=== PATIENT | female | born 1945 | race Two or more races ===

== ENCOUNTER 2018-01-07 13:44 | Outpatient (CLI) | payer OTHER ==
[~2018-01-07 13:44] MED LIST: NABUMETONE500 MG PO; PERCOCET 2.5/321 TAB PO
== END 2018-01-07 14:02 | disposition home or self-care (01) ==
LOC: MAMO-SONO 13:44
DX: Z12.31 Encounter for screening mammogram for malignant neoplasm of breast (principal); Z87.898 Personal history of other specified conditions; N60.12 Diffuse cystic mastopathy of left breast; N60.11 Diffuse cystic mastopathy of right breast; R10.2 Pelvic and perineal pain; R10.84 Generalized abdominal pain

== ENCOUNTER 2018-09-15 07:55 | Outpatient (CLI) | payer OTHER | END 2018-09-15 17:00 | disposition home or self-care (01) | LOC: SONOGRAMA 07:55 | DX: M75.02 Adhesive capsulitis of left shoulder (principal) ==

== ENCOUNTER 2019-03-15 12:54 | Outpatient (CLI) | payer OTHER | END 2019-03-15 14:29 | disposition home or self-care (01) | LOC: MAMO-SONO 12:54 | DX: N60.12 Diffuse cystic mastopathy of left breast (principal); N60.11 Diffuse cystic mastopathy of right breast; N83.291 Other ovarian cyst, right side; D25.1 Intramural leiomyoma of uterus; Z12.31 Encounter for screening mammogram for malignant neoplasm of breast; R10.2 Pelvic and perineal pain; R10.84 Generalized abdominal pain; M89.8X8 Other specified disorders of bone, other site; M85.88 Other specified disorders of bone density and structure, other site; M81.0 Age-related osteoporosis without current pathological fracture ==

== ENCOUNTER 2020-06-02 09:33 | Outpatient (CLI) | payer OTHER | END 2020-06-02 12:00 | disposition home or self-care (01) | LOC: PPH VACUNA 09:33 | PROVIDERS: ATTEND Emergency Medicine Pediatric Emergency Medicine | DX: Z23 Encounter for immunization (principal) ==

== ENCOUNTER 2020-07-17 12:41 | Outpatient (CLI) | payer OTHER | END 2020-07-17 14:59 | disposition home or self-care (01) | LOC: MAMO-SONO 12:41 | PROVIDERS: ATTEND Obstetrics & Gynecology Gynecology | DX: D25.2 Subserosal leiomyoma of uterus (principal); Z12.31 Encounter for screening mammogram for malignant neoplasm of breast; N64.59 Other signs and symptoms in breast ==

== ENCOUNTER → 2020-10-05 | Outpatient (CLI) | payer OTHER | END | disposition home or self-care (01) | LOC: RAD 10:26 | PROVIDERS: ATTEND Ophthalmology | DX: H25.011 Cortical age-related cataract, right eye (principal); Z98.41 Cataract extraction status, right eye ==

== ENCOUNTER 2021-02-18 08:00 | Outpatient (CLI) | payer OTHER | END 2021-02-18 08:05 | disposition home or self-care (01) | LOC: PPH VACUNA 08:00 | PROVIDERS: ATTEND Emergency Medicine Pediatric Emergency Medicine | DX: Z23 Encounter for immunization (principal) ==

== ENCOUNTER 2021-08-26 08:00 | Outpatient (CLI) | payer OTHER | END 2021-08-26 08:30 | disposition home or self-care (01) | LOC: PPH VACUNA 08:00 | PROVIDERS: ATTEND Emergency Medicine Pediatric Emergency Medicine | DX: Z23 Encounter for immunization (principal) ==

== ENCOUNTER → 2021-11-08 | Outpatient (CLI) | payer OTHER | END | disposition home or self-care (01) | LOC: MAMO-SONO 10:47 | PROVIDERS: ATTEND Obstetrics & Gynecology Gynecology | DX: N60.19 Diffuse cystic mastopathy of unspecified breast (principal); N60.12 Diffuse cystic mastopathy of left breast; N60.11 Diffuse cystic mastopathy of right breast; N83.291 Other ovarian cyst, right side; R10.2 Pelvic and perineal pain; R10.9 Unspecified abdominal pain ==

== ENCOUNTER 2021-11-12 07:36 | Outpatient (CLI) | payer OTHER | END 2021-11-12 08:10 | disposition home or self-care (01) | LOC: SONOGRAMA 07:36 | PROVIDERS: ATTEND Obstetrics & Gynecology Gynecology | DX: R10.11 Right upper quadrant pain (principal); R10.2 Pelvic and perineal pain ==

== ENCOUNTER 2022-05-02 10:19 | Outpatient (CLI) | payer OTHER | END 2022-05-02 10:29 | disposition home or self-care (01) | LOC: PPH VACUNA 10:19 | PROVIDERS: ATTEND Emergency Medicine Pediatric Emergency Medicine | DX: Z23 Encounter for immunization (principal) ==

== ENCOUNTER 2022-09-12 07:20 | Outpatient (CLI) | payer OTHER | END 2022-09-12 07:22 | disposition home or self-care (01) | LOC: NUCLEAR 07:20 | PROVIDERS: ATTEND Internal Medicine Cardiovascular Disease | DX: R07.89 Other chest pain (principal) | CPT/HCPCS: 78452; 93017; A9500 ==

== ENCOUNTER 2023-06-11 07:36 | Outpatient (CLI) | payer OTHER | END 2023-06-11 08:00 | disposition home or self-care (01) | LOC: MAMO-SONO 07:36 | PROVIDERS: ATTEND Obstetrics & Gynecology Gynecology | DX: N60.12 Diffuse cystic mastopathy of left breast (principal); N60.11 Diffuse cystic mastopathy of right breast; N83.291 Other ovarian cyst, right side; D25.1 Intramural leiomyoma of uterus ==

== ENCOUNTER → 2024-07-27 | Outpatient (CLI) | payer OTHER | END | disposition home or self-care (01) | LOC: RAD 08:58 | PROVIDERS: ATTEND Specialist | DX: J01.81 Other acute recurrent sinusitis (principal); I11.9 Hypertensive heart disease without heart failure ==

== ENCOUNTER 2024-08-16 10:27 | Outpatient (CLI) | payer OTHER | END 2024-08-16 10:50 | disposition home or self-care (01) | LOC: MAMO-SONO 10:27 | PROVIDERS: ATTEND Obstetrics & Gynecology Gynecology | DX: N60.12 Diffuse cystic mastopathy of left breast (principal); N60.11 Diffuse cystic mastopathy of right breast; N60.19 Diffuse cystic mastopathy of unspecified breast; N83.291 Other ovarian cyst, right side; D25.1 Intramural leiomyoma of uterus; R10.2 Pelvic and perineal pain; R10.9 Unspecified abdominal pain; Z12.31 Encounter for screening mammogram for malignant neoplasm of breast ==

== ENCOUNTER 2024-08-17 06:19 | Outpatient (CLI) | payer OTHER | END 2024-08-17 15:22 | disposition home or self-care (01) | LOC: SONOGRAMA 06:19 | PROVIDERS: ATTEND Obstetrics & Gynecology Gynecology | DX: R10.2 Pelvic and perineal pain (principal); R10.11 Right upper quadrant pain ==

== ENCOUNTER → 2024-09-27 | Outpatient (CLI) | payer OTHER | END | disposition home or self-care (01) | LOC: TOM 10:07 | PROVIDERS: ATTEND Internal Medicine Endocrinology, Diabetes & Metabolism | DX: S06.300A Unspecified focal traumatic brain injury without loss of consciousness, initial encounter (principal); S06.A0XA Traumatic brain compression without herniation, initial encounter; M54.50 Low back pain, unspecified; M99.02 Segmental and somatic dysfunction of thoracic region ==

== ENCOUNTER 2024-10-18 09:58 | Outpatient (CLI) | payer OTHER | END 2024-10-18 10:10 | disposition home or self-care (01) | LOC: MRI 09:58 | DX: M51.360 Other intervertebral disc degeneration, lumbar region with discogenic back pain only (principal); M54.17 Radiculopathy, lumbosacral region; S32.020A Wedge compression fracture of second lumbar vertebra, initial encounter for closed fracture; X58.XXXA Exposure to other specified factors, initial encounter; Y93.9 Activity, unspecified; Y92.9 Unspecified place or not applicable; Y99.9 Unspecified external cause status | CPT/HCPCS: 72148 ==

== ENCOUNTER 2024-12-28 06:46 | Outpatient (CLI) | payer OTHER | END 2024-12-28 06:47 | disposition home or self-care (01) | LOC: MRI 06:46 | PROVIDERS: ATTEND Radiology Diagnostic Radiology | DX: M54.16 Radiculopathy, lumbar region (principal) | CPT/HCPCS: 72148 ==